=== PATIENT | female | born 2000 | race African-American/Black ===

== ENCOUNTER 2019-08-29 15:46 | Emergency (ER) | payer OTHER ==
[~2019-08-29] VITALS: Ht 154.9 cm; Wt 52.2 kg
[~2019-08-29 15:46] MED LIST: ALBU0.0912 INH; EPIN1KIT IM; FLUT0.057 INH; [UNRECOGNIZED DRUG - CODE] PO
[2019-08-29 15:55] VITALS: BP 106/75
--- NOTE | 2019-08-29 16:02 | NUR ---
JAYDON BOB AT BEDSIDE EXAMINING PT
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
[2019-08-29] MEDS ORDERED: IBUPROFEN 600 MG TAB PO ONE (16:20)
--- NOTE | 2019-08-29 16:49 | NUR ---
PT SITTING UPRIGHT AWAKE AND ALERT. SLIGHT DECREASE IN PAIN 3/10 AT THIS TIME
[2019-08-29 16:57] VITALS: BP 106/75
--- NOTE | 2019-08-29 16:58 | NUR ---
Patient discharged with v/s stable. Written and verbal after care instructions given and explained. Patient alert, oriented and verbalized understanding of instructions. Ambulatory with steady gait. All questions addressed prior to discharge. ID band removed. Patient advised to follow up with PMD. Rx of FLEXERIL 10MG AND IBUPROFEN 600MG given. Patient educated on indication of medication including possible reaction and side effects. Opportunity to ask questions provided and answered.
== END 2019-08-29 16:58 | disposition home or self-care (01) ==
LOC: MED 15:46
DX: S39.012A Strain of muscle, fascia and tendon of lower back, initial encounter (principal); J45.909 Unspecified asthma, uncomplicated; Z91.010 Allergy to peanuts; Z79.899 Other long term (current) drug therapy; X58.XXXA Exposure to other specified factors, initial encounter; Y93.89 Activity, other specified; Y92.89 Other specified places as the place of occurrence of the external cause; Y99.8 Other external cause status
CPT/HCPCS: 99283

== ENCOUNTER 2019-12-03 11:13 | Emergency (ER) | payer OTHER ==
[~2019-12-03] VITALS: Ht 154.9 cm; Wt 54.4 kg
[2019-12-03 11:23] VITALS: BP 119/64
[2019-12-03] MEDS ORDERED: LIDOCAINE 2% 1000 MG/50 ML VIAL INJ ONE (12:10)
[2019-12-03 14:05] VITALS: BP 119/64
== END 2019-12-03 14:05 | disposition home or self-care (01) ==
LOC: MED 11:13
DX: N75.0 Cyst of Bartholin's gland (principal); J45.909 Unspecified asthma, uncomplicated; Z79.899 Other long term (current) drug therapy; Z91.010 Allergy to peanuts
CPT/HCPCS: 99284; J2001

== ENCOUNTER 2020-10-14 22:07 | Emergency (ER) | payer SELFPAY ==
[~2020-10-14] VITALS: Ht 154.9 cm; Wt 56.0 kg
[2020-10-14 23:02] VITALS: BP 104/57
--- NOTE | 2020-10-14 23:36 | NUR ---
TO ER BED 2
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
[2020-10-15] MEDS ORDERED: LIDOCAINE/EPI 1% 1:100000 20 ML VIAL INJ ONE ×2 (00:32→00:35)
[2020-10-15] MEDS ORDERED: MORPHINE SULFATE 2 MG/ML SYR IVP ONE (00:50)
[2020-10-15] MEDS ORDERED: ceFAZolin 1,000 MG VIAL ONE (01:10)
[2020-10-15] MEDS ORDERED: GENTAMICIN 300 MG in DEXTROSE 5% 100 ML IV ONE (01:10)
--- NOTE | 2020-10-15 01:19 | NUR ---
IV STARTED MEDICATED FOR PAIN.
[2020-10-15] MEDS ORDERED: GENTAMICIN 80 MG/2 ML VIAL ONE (02:39)
--- NOTE | 2020-10-15 03:14 | NUR ---
2ND ABX BEGAN CT COMPLETED AWAITS RESULT. SNACK GIVEN TO PT. STABLE STTING UP ON HER PHONE NAD.
[2020-10-15] MEDS ORDERED: AMOX1TAB8 PO (03:40)
[2020-10-15 05:09] VITALS: BP 113/76
--- NOTE | 2020-10-15 05:14 | NUR ---
IV DCD AFTER PROVIDED WITH ELECTRONIC RX. PT AWAKE ALERTX3 NAD VS.S AMBULATES WELL DC HOME WITH MOTHER IN FAMILY CAR
== END 2020-10-15 05:09 | disposition home or self-care (01) ==
LOC: MED 22:07
DX: S81.051A Open bite, right knee, initial encounter (principal); J45.909 Unspecified asthma, uncomplicated; Z79.899 Other long term (current) drug therapy; Z79.51 Long term (current) use of inhaled steroids; Z91.010 Allergy to peanuts; Z91.018 Allergy to other foods; W54.0XXA Bitten by dog, initial encounter; Y93.89 Activity, other specified; Y92.89 Other specified places as the place of occurrence of the external cause; Y99.8 Other external cause status
CPT/HCPCS: 73700; 96365; 96366; 96368; 96375; 99284; J0690; J1580; J2001; J2270